=== PATIENT | male | born 1955 | race Asian ===

== ENCOUNTER 2018-10-26 08:36 | Day surgery (SDC) | payer MEDICARE ==
[~2018-10-26] VITALS: Ht 154.9 cm; Wt 74.8 kg
[~2018-10-26 08:36] MED LIST: BAYER CHEWABLE81 MG PO; CATAPRES0.1 MG PO; FLOMAX0.4 MG PO; LASIX40 MG PO; LOPRESSOR50 MG PO; MEDROL DOSE PACK4 MG PO; NORCO 10/325 TA1 TA1 PO; PRAVACHOL40 MG PO; PRILOSEC20 MG PO; TOPROL XL50 MG OR
[2018-10-26 09:55] LABS: BASOPHILS 0.9 % (0-2); EOSINOPHILS 9.4 % (0-7); HEMATOCRIT 39.5 % (42.0-54.0); HEMOGLOBIN 13.2 g/dL (13.5-17.5); IMMATURE GRANULOCYTES 0.4 % (0-5); LYMPHOCYTES 21.4 % (15-50); MCH 31.1 pg (26.0-34.0); MCHC 33.4 g/dL (31.0-37.0); MCV 92.9 fL (80.0-100.0); MEAN PLATELET VOLUME 9.2 fL (7.4-10.4); MONOCYTES 7.7 % (2-11); NEUTROPHILS 60.2 % (40-80); RBC 4.25 10x6/uL (4.20-6.10); RDW 13.6 % (11.5-14.5); WBC 9.1 10x3/uL (4.8-10.8)
[2018-10-26 10:01] LABS: PLATELET COUNT 161 10x3/uL (130-400)
[2018-10-26 10:05] LABS: ANION GAP 22.4 mmol/L (8-16); CALCIUM 8.4 mg/dL (8.5-10.1); CARBON DIOXIDE 22.8 mmol/L (21.0-32.0); CREATININE - SERUM 10.1 mg/dL (0.6-1.3); POTASSIUM - SERUM 5.2 mmol/L (3.5-5.1)
[2018-10-26] MEDS ORDERED: HYDRALAZINE HCL50 MG PO (10:12)
[2018-10-26] MEDS ORDERED: LOVASTATIN20 MG PO (10:13)
[2018-10-26] MEDS ORDERED: BRILINTA90 MG PO (10:13)
[2018-10-26] MEDS ORDERED: SENSIPAR30 MG PO (10:14)
[2018-10-26] MEDS ORDERED: ISOSORBIDE DINI20 MG PO (10:14)
[2018-10-26 10:22] VITALS: Ht 154.9 cm; Wt 74.8 kg
[2018-10-26 12:58] LABS: APTT 37.5 SECONDS (22.8-39.4); INR 1.07 (0.85-1.17); PROTIME 13.4 SECONDS (11.6-15.0)
--- NOTE | 2018-10-26 14:40 | NUR ---
REC'D FROM RR. FAMILY AT BEDSIDE, DRESSING CDI TO LEFT LOWER ARM AND LEFT HEMOSPLIT. XRANBERRY JUICE AND FL TRAY BROUGHT TO PATIENT. SURGEON WANTS BETTER DOCUMENTATION OF HEMOSPLIT PLACEMENT. CALLED RADIOLOGY FOR REPEAT OF XRAY.
[2018-10-26] MEDS ORDERED: HYDROCODON-ACE1 EAC7 PO (14:47)
--- NOTE | 2018-10-26 15:05 | NUR ---
CALLED NEPHROLOGY AND LEFT MESSAGE FOR TRICOT KNITTER TEST LAB TECHNICIAN TO CALL [facility] OUTPATIENT DEPARTMENT.
--- NOTE | 2018-10-26 15:10 | NUR ---
SPOKE WITH [facility]. RELAYED MESSAGE DR BROWN WROTE FOR DR HICKS. ANP ORDERED FOR TRAMADOL 50MG PO BE CALLED IN TO PHARMACY OF PATIENTS CHOICE.
--- NOTE | 2018-10-26 15:30 | NUR ---
RX CALLED INTO THE PHARMACY OF PATIENTS CHOICE.
--- NOTE | 2018-10-26 16:23 | NUR ---
CALLED SURGERY DEPARTMENT AND INFORMED DR BROWN OF THE X RAY RESULT. RELATED PATIENT IS CLEAR TO JOZEF LAGUNA
--- NOTE | 2018-10-26 16:40 | NUR ---
IV DC'D WITH CATHETER INTACT.
--- NOTE | 2018-10-26 16:43 | NUR ---
WRITTEN AND VERBAL DC INST. GIVEN TO PATIENT'S FAMILY. VERBALIZED UNDERSTANDING.
--- NOTE | 2018-10-26 16:45 | NUR ---
DC'D HOME WITH FAMILY VIA PRIVATE VEHICLE. TAKEN TO VEHICLE VIA PRIVATE VEHICLE. STABLE AT TIME OF DC.
--- NOTE | 2018-11-02 13:37 | OP ---
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 ADDITIONAL DIAGNOSES: End-stage renal disease on hemodialysis, dependence on hemodialysis and hypertension. 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 SURGEON: Abigail Brown MD ANESTHESIA: Regional nerve block plus IV sedation and monitoring per DIETARY CLERK. OPERATION PERFORMED: Revision of left forearm radiocephalic AV fistula by ligation of large aneurysmal segment and interposition of a new Artegraft prosthesis. Also, a fistulogram and ultrasound guidance and insertion of a 23 cm HemoSplit hemodialysis catheter via the left internal jugular vein done under local anesthesia with ultrasound and fluoroscopic guidance. PREOPERATIVE NOTE: Mr. Kaiser is a 62-year-old gentleman with end-stage renal disease, on chronic hemodialysis, in [place], [place]. He has dialyzed for quite a long time with a left wrist Maren AV fistula, but he has enlarging aneurysms of a segment of the vein, which are not in my opinion dangerous to him at this moment, but they have expanded over the last year and there is a definite problem in knowing where to stick his fistula for access and so he is brought to the operating room at this time to either repair or bypass in the forearm the present AV fistula or create a new fistula or graft more proximally. I would like to avoid a bridging catheter, but I think that a short-term use of a bridging catheter may be the best bet. DESCRIPTION OF PROCEDURE: A nerve block was administered per DIETARY CLERK. The patient was taken to the operating room and placed on the table in supine position. The neck and shoulder areas and the left arm were prepped and draped in sterile manner. I examined him with ultrasound and noted a very nice cephalic vein and median cubital vein, which provide the primary runoff for his fistula and certainly in the future creation of a brachial to cephalic vein fistula in that arm should be quite preferable; however, he appeared to have an adequate median antecubital vein just above the aneurysmal area that might since be a good landing zone for a graft. I cannulated his fistula distally near the radial artery anastomosis using micropuncture technique and performed a fistulogram which confirmed primary runoff was via the cephalic vein. The deep cubital vein and the secondary median cubital vein to the basilic seemed to also really runoff only to the cephalic vein and not to the basilic. There was a very good median antecubital vein for the graft to be anastomosed too. I made two incisions then, one distally over the fistula, at the radial artery anastomosis and dissected the cephalic vein from the surrounding tissues and controlled it with Silastic loops and vascular clamps as needed. Another OPERATIVE REPORT [id number] TJ KAISER incision on the forearm, just beneath the antecubital space, was made and the vein exposed there and several tributaries were controlled with Silastic loops. The vein was then clamped just proximal to the arterial anastomosis. It was ligated distally with 0 silk and the vein was then transected and anastomosed end-to-end to an artery graft, which was properly prepared having been very thoroughly rinsed after removing it from its package and then flushed with heparinized saline. The anastomosis was done end-to-end with running 6-0 Prolene and when completed and pressurized the suture line was hemostatic. The graft and radial artery were then flushed with saline and then heparin-lock solution. The graft was pulled through a lateral subcutaneous tunnel and brought back to the proximal incision where it was shortened and then again flushed with heparinized saline and clamped. The vein was ligated distally just proximal to the aneurysm. This also was done with 0 silk and the median cubital vein and distal runoff vessels were controlled with Silastic loops. The vein was transected and anastomosed end-to-end to the new graft. This also was done with running 6-0 Prolene. The outflow vein was flushed first with heparinized saline also. No other systemic anticoagulation was utilized. The suture line was hemostatic and excellent flow developed immediately within the new fistula. The patient did have a rather persistent ooze. This was in part due to his hypertension with blood pressures in the range of 150-160/100 throughout the procedure. I did not give DDAVP as I was first tempted because of the patient's severe coronary artery disease. His stock roller has only given his blessing to the operation if his time of Brilinta can be minimized to 2 days. I thought that the use of DDAVP might actually participate in coronary thrombosis and so we did not use it. The wounds were irrigated with saline. Excellent continuous pulsatile Doppler flow was demonstrated. The wounds were closed with interrupted inverted 3-0 Vicryl and then running intracuticular 4-0 Monocryl and Dermabond glue. They were dressed with Maxorb AG and Tegaderm with Cavilon skin prep. Some fluffed gauze was used to fill the aneurysmal cavities and the arm was then dressed with additional 4 x 4s over the aneurysms and over the incisions and then wrapped in Kerlix and then carefully wrapped by myself with 2-inch Coban dressing applying snug pressure in hopes of retarding complete refilling of the aneurysm. There was good flow in the fistula demonstrated after the bandage was applied. The patient was then slightly repositioned and the right neck examined with ultrasound and the right internal jugular vein noted to be thrombosed. The left internal jugular vein on ultrasound was quite large of normal caliber and compressibility and normal color flow, no clots, etc. Local anesthetic was injected into the skin and subcutaneous tissues. Small transverse incision was made there at the base of the neck on the left, and using ultrasound guidance and micropuncture technique the internal jugular vein was cannulated. A wire exchange was performed and then large dilators passed serially over the wire and lastly a dilator peel-away sheath was inserted. This was all done under fluoroscopy. I made an incision beneath the clavicle and created a subcutaneous tunnel through which the catheter was pulled from the infraclavicular incision up to the cervical incision and inserted through the peel-away sheath under fluoroscopy. It was difficult to get the catheter to pass downward into the superior vena cava and right atrium, but with some manipulation, this was accomplished and a good catheter position resulted. The catheter was accessed and aspirated, free return of blood was confirmed for both limbs. It was then heparin-locked, clamped and capped. It was sutured to the skin near the entry site with 2-0 Prolene and a Biopatch applied and sterile CVL dressing after the OPERATIVE REPORT [id number] TJ KAISER skin was treated with topical Cavilon. The cervical incision was closed with interrupted inverted 3-0 Vicryl and Dermabond glue and dressed with Maxorb Ag, Tegaderm and Cavilon skin prep. The patient was then awakened and stable, returned to the outpatient department in good condition. PLAN: I think the patient can go home today. I would like him to wear his sling today and this evening, but no longer. He is to wear it really only as long as the block was in effect. Once it has worn off, I want him to use his arm and maintain a normal range of motion. I would like him to keep his left arm elevated a little bit higher than his heart on pillows when he is lying down for the next day or so hopefully to prevent complete refilling of the aneurysm. I would like to minimize the amount of clot there, so maybe we will not have to go back and excise it. He is to continue all the same medicines. I have asked that he not resume his Brilinta until Monday. I have an appointment arranged for him see me in my office Monday, that is the Monday the week after this coming Monday, it would be the . He is to continue all of his other same medications and diet, continue his same dialysis schedule. We will plan to access graft in 2 weeks. I also think that he should have an early followup angiogram probably at 4 weeks to make certain that there are no kinks or stenoses at the two anastomotic sites or in the tunnel. TRANSINT:[id number] Voice Confirmation ID: [id number] DOCUMENT ID: [id number] cc: Aniceto Alarcon ABIGAIL BROWN MD at 1337 CC: ANICETO ALARCON and MATI HICKS [id number] DICTATION DATE: 10/26/18 1520 SEED SPECIALIST: 10/26/18 1623 [facility] 10/26/18 [facility] [address] [place] [place] [id number]
== END 2018-10-26 16:45 | disposition home or self-care (01) ==
LOC: D.OPS 08:36
PROVIDERS: Surgery
DX: T82.898A Other specified complication of vascular prosthetic devices, implants and grafts, initial encounter (principal); I82.C11 Acute embolism and thrombosis of right internal jugular vein; I12.0 Hypertensive chronic kidney disease with stage 5 chronic kidney disease or end stage renal disease; N18.6 End stage renal disease; Z99.2 Dependence on renal dialysis

== ENCOUNTER 2020-05-30 22:50 | Inpatient (IN) | payer MEDICARE ==
[~2020-05-30] VITALS: Ht 154.9 cm; Wt 76.2 kg
--- NOTE | ~2020-05-30 | EC ---
PATIENT:TJ HERNANDEZ DATE OF SERVICE: 05/31/20 SEX: M MEDICAL RECORD: [id number] DATE OF : 55 LOCATION:D.M2 D.211 AGE OF PATIENT: 64 ADMISSION DATE: 05/31/20 REFERRING PHYSICIAN: INTERPRETING PHYSICIAN: OBAZ MEJIA MD ECHOCARDIOGRAM REPORT ECHO CHARGES 4 ECHO COMPLETE Date: 05/31/20 CLINICAL DIAGNOSIS: CARDIOMYOPATHY ECHOCARDIOGRAPHIC MEASUREMENTS (adult normal given) AC root (d.<3.7cm) 3.5 cm LV Septum d (<1.2 cm> 1.3 cm Valve Excursion 1.5 cm LV Septum (systole) 1.5 cm Left Atria (s.<4.0cm> 4.1 cm LVPW d(<1.2cm) 1.4 cm RV (d.<2.3cm) 4.8 cm LVPW (sytole) 1.7 cm LV diastole(<5.6CM) 6.9 cm MV E-F(>70mm/sec) cm LV systole 5.2 cm LVOT Diameter 1.9 cm MV exc.(>10mm) 2.2 cm Est.ejection fraction (50-75%) % DOPPLER: LVIT cm/sec A 27.0 cm/sec E 87.0 cm/sec LA cm/sec RVSP 48 mmHg LVOT 94 cm/sec AOP1/2T m/s Asc. Ao 150 cm/sec RVOT 81 cm/sec RA cm/sec PA 127 cm/sec AV Gradient Peak 9.00 mmHg AV Mean 4.72 mmHg AV Area 1.6 cm MV Gradient Peak 6.90 mmHg MV Mean 2.71 mmHg MV Area cm COMMENTS: Mask Design Engineer: 2 LUIS FELIPE FELDER Director Of Dementia Operations: 3 Dr. Roche TAPE# PACS Pericardial Effusion N DATE OF SERVICE: 06/01/2020 Adequate 2D, color flow imaging, spectral Doppler, and M-Mode. LVH is present. LV internal dimensions are dilated. LV systolic globally hypokinetic, reduced EF, estimated EF 30% to 35%. Aortic valve is tricuspid. No evidence of stenosis by Doppler interrogation. There is mild AI. Left atrium is dilated is at 4.4 cm. Mitral valve shows no prolapse. Moderate MR. Right-sided chambers are grossly normal. Moderate TR. ECHOCARDIOGRAM REPORT [id number] TJ HERNANDEZ TRANSINT:[id number] Voice Confirmation ID: [id number] DOCUMENT ID: [id number] BOAZ MEJIA MD CC: [id number] DICTATION DATE: 06/01/20 100 CLINICAL ADMINISTRATOR: 06/01/20 1133 ADM IN [place] [id number] [place] [address]
--- NOTE | ~2020-05-30 | CN ---
PATIENT NAME:TJ HERNANDEZ MEDICAL RECORD: [id number] : 55 LOCATION:[facility] D.2113 ADMIT DATE: 05/31/20 ACCOUNT: [id number] CONSULTING PHYSICIAN: BOAZ MEJIA MD REFERRING PHYSICIAN: BOAZ CUELLAR MD DATE OF CONSULTATION: 05/31/2020 HISTORY OF PRESENT ILLNESS: A 64-year-old gentleman with chronic renal insufficiency, on dialysis, has a history of a cardiomyopathy, was transferred after being found to be in atrial fibrillation with RVR as well as hypotensive and angina. Subsequently, found to have an elevated troponin consistent with NSTEMI. We are asked to see him concerning his cardiovascular status. PAST MEDICAL HISTORY: Includes: 1. History of chronic renal insufficiency. 2. Hypertension. 3. Hyperlipidemia. 4. Coronary artery disease. 5. Gastroesophageal reflux disease. ALLERGIES: None known. MEDICATIONS: Include albuterol 2 puffs b.i.d., Flomax 0.4 every day, Brilinta 90 b.i.d., hydralazine 50 b.i.d., Imdur 20 t.i.d., lovastatin 20 bedtime, clonidine 0.1 q.4 p.r.n., aspirin 81 every day, Lasix 40 every day. SOCIAL HISTORY: He lives in [place], nonsmoker, nondrinker. Easily takes care of his ADLs. REVIEW OF SYSTEMS: The patient reports easy bruising but reports no swollen glands. The patient reports no fever, no night sweats, no significant weight gain, no significant weight loss. No significant exercise tolerance. The patient reports no dry eyes, no irritation, no vision change. Patient reports no difficulty hearing and no ear pain. Patient reports no frequent nose bleeds or nose and sinus problems. Patient reports on arm pain on exertion. No shortness of breath while lying down. No history of heart murmur. Patient reports no cough, no wheezing or coughing up blood. Patient reports no abdominal pain, no vomiting. Normal appetite. No diarrhea and not vomiting blood. No nausea and no constipation. Patient reports no incontinence. No difficulty urinating. No hematuria. No increased frequency. Patient reports no muscle aches. No weakness, no arthralgias, no back pain. No swelling of the extremities. Patient reports no abnormal mole, no jaundice, no rashes. Reports no loss of consciousness. No weakness and no numbness. No seizures, dizziness, or headaches. The patient reports no depression, no sleep disturbance, feeling safe in a relationship and no alcohol abuse. Patient reports on fatigue. Reports no runny nose or sinus pressure. No itching, no hives, and no frequent sneezing. PHYSICAL EXAMINATION: GENERAL: Pleasant, in no acute distress, appears stated age. VITAL SIGNS: Blood pressure 112/82, pulse 88 and regular. HEENT: Normocephalic, atraumatic. NECK: No bruits noted. HEART: Irregular, rate is controlled, II/ systolic ejection murmur. LUNGS: Fair air excursion. CONSULT REPORT [id number] TJ HERNANDEZ ABDOMEN: Soft, nontender. EXTREMITIES: Pulses 2+. No edema. DIAGNOSTIC DATA: EKG shows nonspecific ST-T changes, atrial fibrillation. IMPRESSION: Non-ST elevation myocardial infarction, question of demand ischemia from hypotension and atrial fibrillation versus fixed obstructive disease. PLAN: For angiography, intervention based on above. TRANSINT:[id number] Voice Confirmation ID: [id number] DOCUMENT ID: [id number] BOAZ MEJIA MD CC: [id number] DICTATION DATE: 05/31/20 1029 PLANT ECOLOGIST: 05/31/20 1514 ADM IN [facility] [address] [place] [address]
--- NOTE | ~2020-05-30 | HEMODYNAMI ---
PATIENT:TJ HERNANDEZ MEDICAL RECORD: [id number] : 55 LOCATION:[facility] D.2113 ADMISSION DATE: 05/31/20 Generatedon:06/01/202010:33 Patient name: TJ HERNANDEZ Patient #: [id number] : 1955 Date of study: 06/01/2020 Page: Of Hemodynamic Procedure Report Patient Data Patient Demographics Procedure consent was obtained First Name: TJ Gender: Male Last Name: DAVID : 1955 Patient #: [id number] Age: 64 year(s) Race: SSN: [id number] Additional ID: [id number] Contact details Address: [address] [place] [address] [place] [place] [facility] Zip code: [address] Past Medical History Allergies: No known allergies Admission Admission Data Admission Date: 05/31/2020 Admission Time: 0:46 Arrival Date: 06/01/2020 Arrival Time: 0:00 Admit Source: Other Insurance Payor: Medicaid Room #: D.2113 [facility] #: [id number] Height (in.): 60.63 BSA: 1.74 (m2) Height (cm.): 154 BMI: 32.05 (kg/m2) Weight (lbs.): 167.55 Weight (kg.): 76 Lab Results Lab Result Date: 06/01/2020 Lab Result Time: 0:00 Biochemistry Name Units Result Min Max BUN mg/dl 71 --(----)-* 7 18 Creatinine mg/dl 10.1 --(----)-* 0.6 1.3 eGFR ml/min 6 *-(----)-- 90 120 NONAFRICAN CBC Name Units Result Min Max Hemoglobin g/dl 9.8 *-(----)-- 13.5 17.5 Procedure Procedure Types Cath Procedure Diagnostic Procedure LHC [facility] w/Coronaries Sedation Charges Moderate Sedation up to 15 minutes Procedure Description Procedure Date Procedure Date: 06/01/2020 Procedure Start Time: 10:17 Procedure End Time: 10:31 Procedure Staff Name Function Eric Ragland MD Performing Physician Julita Valentino RT Monitor Ingris Real RN Nurse Ana Levin RT Scrub Procedure Data Cath Procedure Fluoroscopy Diagnostic fluoroscopy Total fluoroscopy Time: 1.9 time: 1.9 min min Diagnostic fluoroscopy Total fluoroscopy dose: 445 dose: 445 mGy mGy Contrast Material Contrast Material Type Amount (ml) Isovue 300 59 Entry Location Entry Primary Successful Side Size Upsize Upsize Entry Closure Succes sful Closure Location (Fr) 1 (Fr) 2 (Fr) Remarks Device Remarks Femoral Right 5 Fr Exoseal artery Estimated blood loss: 10 ml Diagnostic catheters Device Type Used For End Catheter Placement MULTIPACK JL 4.0 5Fr Procedure catheter MULTIPACK 3DRC 5Fr Procedure catheter MULTIPACK Pigtail 5 Fr Ventriculography catheter Procedure Complications No complications Procedure Medications Medication Administration Route Dosage Oxygen etCO2 Nasal cannula 2 l/min Lidocaine 2% added to field 20 Heparin Flush Bag added to field 2 bags (1000units/500ml NS) 0.9% NaCl I.V. Versed I.V. 1 mg Fentanyl I.V. 50 mcg Hemodynamics Rest BSA: 1.74 (m2) HGB: 9.8 (g/dl) O2 Consumption: Estimated: 224.31 (ml/min) O2 Con sumption indexed: Estimated:128.91 (ml/min/m) Heart Rate: 102 (bpm) Pressure Samples Time Site Value (mmHg) Purpose Heart Use Rate(bpm) 10:25 LV 107/30,18 Snapshot 108 Gradients Valve Time Site Site Mean SEP/DFP Peak To Heart Use 1 2 (mmHg) (sec/min) Peak Rate (mmHg) (bpm) Aortic 10:25 LV AO 104 Snapshots Pre Cath Intra NCS Post Cath Vital Signs Time Heart Resp SPO2 etCO2 NIBP (mmHg) Rhythm Pain Sedation Rate (ipm) (%) (mmHg) Status Level (bpm) 10:06:09 105 20 100 0 132/100(129) A-Fib 0 (11) 10(A) , No pain 10:10:29 108 21 100 0 132/94(109) A-Fib 0 (11) 10(A) , No pain 10:14:49 102 18 100 0 131/102(121) A-Fib 0 (11) 10(A) , No pain 10:19:09 96 17 100 0 137/93(121) A-Fib 0 (11) 10(A) , No pain 10:23:25 101 16 98 0 125/103(112) A-Fib 0 (11) 10(A) , No pain 10:27:43 95 14 96 0 129/91(94) A-Fib 0 (11) 10(A) , No pain Medications Time Medication Route Dose Verified Delivered Reason Notes Eff ectiveness by by 10:05:02 Oxygen etCO2 2 Eric Buffie used for Nasal l/min [facility] Montez Real RN procedure cannula 10:05:09 Lidocaine 2% added 20ml Eric Eric for local to vial [facility] anesthetic field MD MORENO 10:05:16 Heparin Flush added 2 Eric Eric used for Bag to bags [facility] procedure (1000units/500ml field MD MORENO NS) 10:05:26 0.9% NaCl I.V. kvo Eric Amado Per ml/hr Ellyn Adide RN physician 10:15:22 Versed I.V. 1 [address] [facility] Montez Real RN sedation 10:15:28 Fentanyl I.V. 50 Eric Faithie for mcg Ellyn Addie RN sedation Procedure Log Time Note 9:36:29 Informed consent obtained and on chart 9:51:15 Arrival Date: 06/01/2020 12:00:00 AM 9:51:38 Admit Source: Other 9:51:44 Insurance Payor : Medicaid 9:51:52 Patient Height : 60.63 inches 9:51:55 Patient Weight : 167.55 lbs 9:53:16 Lab Result : eGFR NONAFRICAN 6 ml/min 9:53:16 Lab Result : Hemoglobin 9.8 g/dl 9:53:16 Lab Result : BUN 71 mg/dl 9:53:16 Lab Result : Creatinine 10.1 mg/dl 9:53:46 Procedure Status Urgent Heart Cath (IP). 9:53:49 Ana DELAROSA(R) (CV) sent for patient. Start room use. 9:53:51 Time tracking: Regular hours (M-F 7:00 - 5:00) 9:53:58 Plan of Care:Hemodynamics will remain stable., Cardiac rhythm will remain stable., Comfort level will be maintained., Respiratory function will remain adequate., Patient/ family verbilizes understanding of procedure., Procedure tolerated without complication., Recovers from procedure without complications.. 9:54:10 Patient received from Med II to CCL 1 Alert and oriented. Tansferred to table in Supine position. 9:54:11 Correct patient and procedure confirmed by team. 9:54:14 ECG and BP/O2 sat monitors applied to patient. 9:54:25 H&P Date Dictated: 05/31/2020 Within 30 days and on chart., H&P Addendum completed by physician on day of procedure. (MUST COMPLETE FOR ALL OUTPATIENTS). 9:54:28 Pre-procedure instructions explained to patient. 9:54:37 Family unavailable. 9:55:30 Patient allergic to No known allergies 9:55:53 Is the patient allergic to Iodine/contrast media? No. 9:55:55 Was the patient premedicated? Yes 9:56:16 Patient diabetic? Yes. 9:56:19 If diabetic: On Metformin? No 9:56:23 Snore? Yes 9:56:25 Sleep apnea? Yes 9:56:34 Airway obstruction? Yes UNK 9:56:50 Dentures? No ? 9:57:09 Patient pain scale 0/10 ?. 9:57:23 IV patent on arrival in right hand with 0.9% NaCl at KVO. 9:57:26 Lab results completed and on chart. 9:57:30 Right groin area was prepped with chlora-prep and draped in sterile fashion 9:57:31 Alarms reviewed by R. N. 9:57:32 Sharps counted by scrub and verified by R.N. 10:04:51 Vital chart was started 10:05:02 Oxygen 2 l/min etCO2 Nasal cannula was administered by Ingris Real RN; used for procedure; Verbal order read back and verified. 10:05:09 Lidocaine 2% 20ml vial added to field was administered by Eric Ragland MD; for local anesthetic; Verbal order read back and verified. 10:05:16 Heparin Flush Bag (1000units/500ml NS) 2 bags added to field was administered by Eric Ragland MD; used for procedure; Verbal order read back and verified. 10:05:26 0.9% NaCl kvo ml/hr I.V. was administered by Ingris Real RN; Per physician; Verbal order read back and verified. 10:05:27 Physician arrived 10:05:27 --------ALL STOP TIME OUT------ 10:05:29 Final Timeout: patient, procedure, and site verified with staff and physician. All members of the team are in agreement. 10:05:40 Right groin site verified by team. 10:05:45 Fire Safety Assessment: A--An alcohol-based skin anteseptic being used preoperatively., C--Open oxygen or nitrous oxide is being used., D--An ESU, laser, or fiber-optic light is being used. 10:05:50 Physical assessment completed. ASA score P 3 - A patient with severe systemic disease as per Eric Ragland MD. 10:05:54 5) <15 or on dialysis Very severe, or end stage kidney failure. 10:06:01 Maximum allowable contrast dose (3.7 X eGFR X 0.75)16 ml. 10:06:06 Sedation plan: IV Moderate Sedation Medication:Versed, Fentanyl 10:06:19 Baseline sample Acquired. 10:06:24 Full Disclosure recording started 10:08:37 Is patient on blood thinner?Yes 10:08:42 ACC The patient was administered the following blood thiners within the last 24 hours: ACCBrilinta 10:13:10 Use device set Femoral Dx 10:13:11 ACIST Syringe (23541) opened to sterile field. 10:13:11 Bag Decanter (2001S) opened to sterile field. 10:13:12 Medline Cath Pack ([id number]) opened to sterile field. 10:13:14 ACIST Hand Control (11851) opened to sterile field. 10:13:14 ACIST Manifold (96917) opened to sterile field. 10:13:15 DIAGNOSTIC Multipack 5Fr catheter set (MA3143) opened to sterile field. 10:13:16 Tegaderm 4 x 4 (1626W) opened to sterile field. 10:13:18 SHEATH 5FR [place] (ETT761) opened to sterile field. 10:13:19 EMERALD Guide Wire (669-084) opened to sterile field. 10:15:22 Versed 1 mg I.V. was administered by Ingris Real RN; for sedation; Verbal order read back and verified. 10:15:28 Fentanyl 50 mcg I.V. was administered by Ingris Real RN; for sedation; Verbal order read back and verified. 10:16:52 Procedure started. 10:17:07 Local anesthetic to right femoral artery with Lidocaine 2% by Eric Ragland MD.INITIAL ACCESS ONLY 10:17:45 A 5 Fr sheath was inserted into the Right Femoral artery 10::49 A MULTIPACK JL 4.0 5Fr catheter was advanced over the wire and used for Procedure. 10::51 LCA angiography performed. 10::53 Catheter removed. 10:22:01 A MULTIPACK 3DRC 5Fr catheter was advanced over the wire and used for Procedure. 10:22:06 RCA angiography performed. 10:23:15 Catheter removed. 10:23:21 A MULTIPACK Pigtail 5 Fr catheter was advanced over the wire and used for Ventriculography. 10:23:26 LV angiography performed. 10:23:32 Zero performed for pressure channel P1 10:25:22 EF : 20 % 10:25:25 Catheter removed. 10:25:28 EXOSEAL 5Fr (EX500) opened to sterile field. 10:25:57 Sheath removed intact; hemostasis achieved with Exoseal to the Right Femoral artery. 10:26:02 Procedure ended.(Physican Out) 10:27:18 Fluoroscopy time 01.90 minutes. 10::22 Fluoroscopy dose: 445 mGy 10::22 Flurop Dose total: 445 10:27:26 Dose Area Product 16766 mGy/cm. 10:27:34 Contrast amount:Isovue 300 59ml. 10:27:58 Maximum allowable dose exceeded? Yes. 10::59 Sharps counted by scrub and verified by R.N. 10:28:00 Insertion/operative site no bleeding no hematoma. 10:28:06 Post-op/insertion site Right Femoral artery dressed using a 4 x 4 and Tegaderm. 10:28:10 Post right femoral artery:stable 10:28:14 Post Procedure Pulses reassessed and unchanged 10:28:20 Post-procedure physical assessment completed. ASA score P 3 - A patient with severe systemic disease as per Eric Ragland MD. 10:28:29 Post procedure rhythm: unchanged. 10:28:32 Estimated blood loss: 10 ml 10:28:34 Post procedure instruction explained to patient.Patient verbalizes understanding. 10:29:35 Procedure type changed to Cath procedure, Diagnostic procedure, LHC, LHC w/Coronaries, Sedation Charges, Moderate Sedation up to 15 minutes 10:29:37 Procedure and supply charges have been captured, reviewed, submitted and are correct. 10:30:04 Procedure and supply charges have been captured, reviewed, submitted and are correct. 10:30:16 Procedure Complication : No complications 10:30:19 Vital chart was stopped 10:30:34 [facility] Findings: mild to moderate CAD (<70%) 10:30:42 Report given to Med II. 10:30:47 Patient transfered to Med II with Bed. 10:31:07 Procedure ended. 10:31:07 Full Disclosure recording stopped 10:31:10 End room use (Document Last) Device Usage Item Name Manufacture Quantity Catalog Hospital Part Current Minimal L ot# / Number Charge Number Stock Stock Serial# Code ACIST Acist 1 88160 397004 119219 532776 20 Syringe Medical (07515) Systems Inc Bag Microtek 1 2001S 125855 73193 000496 5 Decanter Medical Inc. () Medline Medline 1 [id number] 046236 27852 358334 5 Cath Pack ([id number]) ACIST Hand Acist 1 09583 245983 529467 635935 5 Control Medical (71389) Systems Inc ACIST Acist 1 21852 101036 275632 212910 5 Manifold Medical (29095) Systems Inc DIAGNOSTIC Cardinal 1 [id number] 119720 08610 796799 30 Multipack Health 5Fr catheter set (UZ5477) Tegaderm 4 3M 1 1626W 113901 580198 770349 5 x 4 (1626W) SHEATH 5FR Terumo 1 SLO776 197985 955946 019794 5 [place] (YYG650) EMERALD Cardinal 1 502-455 060006 002093 156699 5 Guide Wire [facility] (502-455) MULTIPACK Cardinal 1 776228 5 JL 4.0 5Fr Health catheter MULTIPACK Cardinal 1 820509 5 3DRC 5Fr Health catheter MULTIPACK Cardinal 1 885633 5 Pigtail 5 Health Fr catheter EXOSEAL 5Fr Cardinal 1 EX500 363574 425560 621544 10 (EX500) Health Signature Audit [place] Stage Time Signature Unsigned Intra-Procedure 06/01/2020 Julita Valentino 10:30:04 AM RT(R) Intra-Procedure 06/01/2020 Ingris Real RN 10:33:06 AM Intra-Procedure 06/01/2020 Eric Jordan 10:33:39 AM Montez MORENO [facility] [address] [id number]
--- NOTE | ~2020-05-30 | OP ---
PATIENT NAME: TJ HERNANDEZ MEDICAL RECORD: [id number] :55 LOCATION:D.M2 D.2112 ADMISSION DATE:05/31/20 SURGEON: BOAZ MEJIA MD DATE OF OPERATION: 06/01/2020 PROCEDURE: Left heart catheterization, selective angiography, right femoral artery approach. CATHETERS: A 5-Macedonian sheath, 5/4 left and right Vinnie, 5/4 pig. Procedure was well tolerated. The patient was returned to the leo. Sheath removed. ExoSeal device placed. FINDINGS: Left ventriculography in 30-degree MEDINA view: Global hypokinesis with reduced EF, estimated at 20% to 25%. CORONARY ANATOMY: LEFT MAIN: Left main is free of disease. LAD: Area of previous stent is widely patent without evidence of restenosis. No progression of circle disease. CIRCUMFLEX: Left dominant system, free of disease. RIGHT CORONARY ARTERY: Rudimentary vessel totally occluded in its mid portion with filling via both right to right and left to right collaterals. IMPRESSION: Patent stents, cardiomyopathy appears in excess to his underlying coronary disease. Medical management recommended. TRANSINT:[id number] Voice Confirmation ID: [id number] DOCUMENT ID: [id number] BOAZ MEJIA MD CC: [id number] DICTATION DATE: 06/01/20 1035 CHILD CARE NURSE: 06/01/202055 ADM IN [facility] [address] [place] [address]
[~2020-05-30 22:50] MED LIST changes: +BRILINTA90 MG PO; +HYDRALAZINE HCL50 MG PO; +HYDROCODON-ACE1 EAC7 PO; +ISOSORBIDE DINI20 MG PO; +LOVASTATIN20 MG PO; +SENSIPAR30 MG PO
[2020-05-30 23:20] LABS: BASOPHILS 1.5 % (0-2); EOSINOPHILS 6.5 % (0-7); HEMATOCRIT 33.6 % (42.0-54.0); HEMOGLOBIN 10.3 g/dL (13.5-17.5); IMMATURE GRANULOCYTES 0.2 % (0-5); LYMPHOCYTES 20.7 % (15-50); MCH 30.7 pg (26.0-34.0); MCHC 30.7 g/dL (31.0-37.0); MEAN PLATELET VOLUME 9.6 fL (7.4-10.4); MONOCYTES 10.7 % (2-11); NEUTROPHILS 60.4 % (40-80); PLATELET COUNT 125 10x3/uL (130-400); RBC 3.36 10x6/uL (4.20-6.10); RDW 16.3 % (11.5-14.5); WBC 5.4 10x3/uL (4.8-10.8)
[2020-05-30 23:25] LABS: CALC OSMOLALITY 275 mosm/kg (275-300); CALCIUM 8.9 mg/dL (8.5-10.1); CARBON DIOXIDE 25.4 mmol/L (21.0-32.0); CHLORIDE - SERUM 97 mmol/L (98-107); GLUCOSE 76 mg/dL (74-106); POTASSIUM - SERUM 4.4 mmol/L (3.5-5.1); SODIUM 134 mmol/L (136-145); UREA NITROGEN 38 mg/dL (7-18); eGFR NON AFRICAN AMERICAN 8 mL/min (90-120)
[2020-05-30] MEDS ORDERED: BAYER CHEWABLE81 MG PO (23:27)
[2020-05-30] MEDS ORDERED: RENAGEL800 MG PO (23:28)
[2020-05-30] MEDS ORDERED: LOVASTATIN20 MG PO (23:29)
[2020-05-30] MEDS ORDERED: VENTOLIN HFA [SP8 GM INH (23:30)
[2020-05-30 23:45] LABS: ALBUMIN 3.8 g/dL (3.4-5.0); ALKALINE PHOSPHATASE 113 U/L (30-120); ALT (SGPT) 15 U/L (10-68); BILIRUBIN - TOTAL 2.48 mg/dL (0.2-1.3); CKMB 3.1 U/L (0.0-3.6); CREATINE KINASE 159 UL (21-232); MAGNESIUM - SERUM 1.8 mg/dL (1.8-2.4); PHOSPHOROUS 5.4 mg/dL (2.5-4.9); PROTEIN - SERUM 7.6 g/dL (6.4-8.2)
[2020-05-30 23:47] LABS: PRO BNP 37397 pg/mL (0-125)
[2020-05-30 23:48] LABS: TROPONIN-I 0.145 ng/mL (0.000-0.060)
[2020-05-30 23:49] LABS: INR 1.76 (0.85-1.17); PROTIME 20.3 SECONDS (11.6-15.0)
[2020-05-30 23:50] LABS: APTT 43.4 SECONDS (22.8-39.4)
[2020-05-31] VITALS (9 sets, daily range): BP systolic 102–147; BP diastolic 70–87; BMI 31.8
--- NOTE | 2020-05-31 02:56 | NUR ---
RECIEVED REPORT HILL PEREZ RN IN ER. ARRIVED TO FLOOR ON STRETCHER. TRANSFERED SELF TO BED. ALERT AND ORIENTED X4. SPEAKS BROKEN UPPER SORBIAN AND HARD TO UNDERSTAND. PREFERS TO SPEAK GAL. LT ARM RESERVED D/T AVF. GOOD MIGUEL AND NORMA. IV TO RT FA SL. DENIES ANY NEEDS AT THIS TIME.
[2020-05-31 07:42] LABS: HEMATOCRIT 33.7 % (42.0-54.0); HEMOGLOBIN 10.6 g/dL (13.5-17.5); MCH 30.9 pg (26.0-34.0); MCHC 31.5 g/dL (31.0-37.0); MCV 98.3 fL (80.0-100.0); MEAN PLATELET VOLUME 9.6 fL (7.4-10.4); PLATELET COUNT 117 10x3/uL (130-400); RBC 3.43 10x6/uL (4.20-6.10)
[2020-05-31 07:45] LABS: WBC 6.9 10x3/uL (4.8-10.8)
[2020-05-31 07:46] LABS: ALBUMIN 3.8 g/dL (3.4-5.0); ALKALINE PHOSPHATASE 113 U/L (30-120); ALT (SGPT) 16 U/L (10-68); BILIRUBIN - TOTAL 2.44 mg/dL (0.2-1.3); CALC OSMOLALITY 283 mosm/kg (275-300); CALCIUM 9.2 mg/dL (8.5-10.1); CARBON DIOXIDE 25.3 mmol/L (21.0-32.0); CHLORIDE - SERUM 98 mmol/L (98-107); CKMB 3.2 U/L (0.0-3.6); CREATINE KINASE 157 UL (21-232); CREATININE - SERUM 8.1 mg/dL (0.6-1.3); GLUCOSE 73 mg/dL (74-106); MAGNESIUM - SERUM 1.9 mg/dL (1.8-2.4); PHOSPHOROUS 6.2 mg/dL (2.5-4.9); POTASSIUM - SERUM 4.4 mmol/L (3.5-5.1); PROTEIN - SERUM 7.7 g/dL (6.4-8.2); SODIUM 136 mmol/L (136-145); TROPONIN-I 0.124 ng/mL (0.000-0.060); UREA NITROGEN 48 mg/dL (7-18); eGFR NON AFRICAN AMERICAN 7 mL/min (90-120)
[2020-05-31 08:34] LABS: EOSINOPHILS 8 % (0-7); LYMPHOCYTES 15 % (15-50); NEUTROPHILS 77 % (40-80); PLATELET ESTIMATE NORMAL
[2020-05-31 09:19] LABS: CHOL - HDL RATIO 2.6 ratio (2.3-4.9); LDL-HDL RATIO 1.3 ratio (1.5-3.5)
--- NOTE | 2020-05-31 11:40 | NUR ---
CONSETS SIGNED FOR C IN AM.
--- NOTE | 2020-05-31 20:00 | NUR ---
INITIAL ROUNDS AND ASSESSMENT COMPLETED. PT RESTING IN BED WITH NO DISTRESS. CAF PER TELEMETRY. O2 @ 2L/NC WITH NONLABORED RESPIRATIONS. RESERVE LEFT ARM FOR AVF. SALINE LOCK TO RFA. INSTRUCT ON NPO AFTER MIDNIGHT FOR HEART CATH IN AM. PT VOICED UNDERSTANDING.
[2020-06-01] VITALS (7 sets, daily range): BP systolic 0–132; BP diastolic 0–85; Ht 154.9 cm; Wt 76.2 kg
[2020-06-01 04:41] LABS: BASOPHILS 1.1 % (0-2); HEMATOCRIT 30.8 % (42.0-54.0); HEMOGLOBIN 9.8 g/dL (13.5-17.5); IMMATURE GRANULOCYTES 0.4 % (0-5); LYMPHOCYTES 19.4 % (15-50); MCH 30.9 pg (26.0-34.0); MCHC 31.8 g/dL (31.0-37.0); MCV 97.2 fL (80.0-100.0); MEAN PLATELET VOLUME 8.8 fL (7.4-10.4); MONOCYTES 12.4 % (2-11); NEUTROPHILS 55.7 % (40-80); PLATELET COUNT 121 10x3/uL (130-400); RBC 3.17 10x6/uL (4.20-6.10); RDW 15.5 % (11.5-14.5); WBC 5.3 10x3/uL (4.8-10.8)
[2020-06-01 05:18] LABS: ALBUMIN 3.4 g/dL (3.4-5.0); ANION GAP 15.4 mmol/L (8-16); BILIRUBIN - TOTAL 1.27 mg/dL (0.2-1.3); CREATININE - SERUM 10.1 mg/dL (0.6-1.3); POTASSIUM - SERUM 4.4 mmol/L (3.5-5.1); PROTEIN - SERUM 6.9 g/dL (6.4-8.2)
[2020-06-01 05:27] LABS: PHOSPHOROUS 7.8 mg/dL (2.5-4.9)
[2020-06-01 09:27] LABS: CHOL - HDL RATIO 2.4 ratio (2.3-4.9); LDL-HDL RATIO 1.2 ratio (1.5-3.5)
[2020-06-01] MEDS ORDERED: COZAAR25 MG PO (14:07)
[2020-06-01] MEDS ORDERED: METOPROLOL TART25 MG PO (14:10)
--- NOTE | 2020-06-01 16:43 | NUR ---
DAUGHTER INROUTE TO CONCRETE VIBRATOR OPERATOR FATHER BUT DID NOT HAVE OXYGEN, OXYGEN [employer]ENT[employer] COMPANY CALLED AND HAD NO INSTALLMENT AGENT AVAILABLE TO BRING PORTABLE TANK. DISCHARGE CANCELLED AND SON WILL CONCRETE VIBRATOR OPERATOR FATHER WITH PORTABLE OXYGEN TOMORROW.
--- NOTE | 2020-06-01 20:26 | NUR ---
REPORT RECEIVED, WILL CONT POC. PT A&O, UP IN BED WATCHING TV. NO S/S OF DISTRESSED OBSERVED. RR EVEN AND UNLABORED ON 2L VIA NC. REQUESTS WATER, BROUGHT TO BEDSIDE. PT DENIES FURTHER NEEDS AT THIS TIME. BED LOCKED AND LOWERED, CALL LIGHT IN REACH. ASSESSMENT COMPLETED AT THIS TIME. WILL CONT TO MONITOR.
[2020-06-02 00:17] VITALS: BP 112/64
[2020-06-02 04:00] VITALS: BP 120/55
[2020-06-02 05:41] LABS: BASOPHILS 0.9 % (0-2); EOSINOPHILS 10.6 % (0-7); HEMATOCRIT 30.7 % (42.0-54.0); HEMOGLOBIN 9.6 g/dL (13.5-17.5); IMMATURE GRANULOCYTES 0.4 % (0-5); MCH 30.4 pg (26.0-34.0); MCHC 31.3 g/dL (31.0-37.0); MCV 97.2 fL (80.0-100.0); MEAN PLATELET VOLUME 9.6 fL (7.4-10.4); MONOCYTES 10.4 % (2-11); NEUTROPHILS 59.7 % (40-80); PLATELET COUNT 134 10x3/uL (130-400); RBC 3.16 10x6/uL (4.20-6.10); RDW 15.7 % (11.5-14.5); WBC 5.4 10x3/uL (4.8-10.8)
[2020-06-02 05:53] LABS: ALBUMIN 3.5 g/dL (3.4-5.0); BILIRUBIN - TOTAL 1.13 mg/dL (0.2-1.3); CALCIUM 8.8 mg/dL (8.5-10.1); CREATININE - SERUM 12.5 mg/dL (0.6-1.3)
--- NOTE | 2020-06-02 06:05 | NUR ---
PTS IV INFILTRATED. REMOVED IV CATHETER, CATHETER INTACT. PT REFUSES NEW IV ACCESS DUE TO AM DISCHARGE.
[2020-06-02 07:00] VITALS: BP 132/80
[2020-06-02] MEDS ORDERED: ELIQUIS5 MG PO (09:01)
--- NOTE | 2020-06-02 09:01 | MORECARE ---
CASE MANAGEMENT DISCHARGE SUMMARY PATIENT: TJ HERNANDEZ UNIT: [id number] ADM DATE: 05/31/20 AGE: 64 : 55 SEX: M ROOM/BED: D.2113 AUTHOR: JULIAN MORROW PHYSICIAN: REFERRING PHYSICIAN: BOAZ CUELLAR MD DATE OF SERVICE: 06/02/20 Discharge Plan Patient Name: TJ HERNANDEZ Facility: [facility]:[place] : 1955 Planned Disposition: Home Anticipated Discharge Date: 06/02/20 Discharge Date: Expected LOS: 2 Initial Reviewer: [email or web address] Initial Review Date: 06/02/2020 Generated: 06/02/20 10:01 am Patient Name: TJ HERNANDEZ Page [id number] at 0901 All edits/amendments must be made on the electronic document DICTATION DATE: 06/02/20900 AEROSPACE CONTROL AND WARNING SYSTEMS: SACHA 06/02/20900 RPT#: [id number] DC DATE: STATUS: ADM IN [facility] [address] [place] [address] END OF REPORT
--- NOTE | 2020-06-02 09:09 | MORECARE ---
CASE MANAGEMENT DISCHARGE SUMMARY PATIENT: TJ HERNANDEZ UNIT: [id number] ADM DATE: 05/31/20 AGE: 64 : 55 SEX: M ROOM/BED: D.2113 AUTHOR: JULIAN MORROW PHYSICIAN: REFERRING PHYSICIAN: BOAZ CUELLAR MD DATE OF SERVICE: 06/02/20 Discharge Plan Patient Name: TJ HERNANDEZ [facility] : 1955 Planned Disposition: Home Anticipated Discharge Date: 06/02/20 Discharge Date: Expected LOS: 2 Initial Reviewer: [email or web address] Initial Review Date: 06/02/2020 Generated: 06/02/20 10:09 am DCPIA - Discharge Planning Initial Assessment Updated by [email or web address]: Helen Rosenberg on 06/02/20 9:04 am * PCP Dr Garcia * Pharmacy [address] in [place] * ADLs Partial Dependent * Partial ADLs (Assistance needed) Ambulation * Equipment Cane Other Oxygen * Other Equipment Portable oxygen * List name and contact numbers for known caregivers / representatives who currently or will assist patient after discharge: Antonio Lan DTR - [address] [facility] [phone] * Community resources currently utilized [place] Services * Please name any agencies selected above. [facility] in [place] * Additional services required to return to the preadmission environment? No * Can the patient safely return to the preadmission environment? Yes * Has this patient been hospitalized within the prior 30 days at any hospital? Yes Last DP export: 06/02/20 8:01 a Patient Name: TJ HERNANDEZ Page 37400 at 0909 All edits/amendments must be made on the electronic document DICTATION DATE: 06/02/20908 OCEANOLOGIST: SACHA 06/02/20908 RPT#: [id number] DC DATE: STATUS: ADM IN [facility] [address] [place] [address] END OF REPORT
--- NOTE | 2020-06-02 09:12 | NUR ---
PT WILL BE ABLE TO DIALYZE IN [facility] TODAY SO WILL DISCHARGE. SCRIPT FOR ELITYLOR CALLED INTO [facility]. 5MG PO BID PER DR HICKS. FAMILY BRINGING OXYGEN. TELEMETRY REMOVED.
--- NOTE | 2020-06-02 09:16 | MORECARE ---
CASE MANAGEMENT DISCHARGE SUMMARY PATIENT: TJ HERNANDEZ UNIT: [id number] ADM DATE: 05/31/20 AGE: 64 : 55 SEX: M ROOM/BED: D.2113 AUTHOR: ODALYS,DOC PHYSICIAN: REFERRING PHYSICIAN: BOAZ CUELLAR MD DATE OF SERVICE: 06/02/20 Discharge Plan Patient Name: TJ HERNANDEZ Facility: [facility]:[place] : 1955 Planned Disposition: Home Anticipated Discharge Date: 06/02/20 Discharge Date: Expected LOS: 2 Initial Reviewer: [email or web address] Initial Review Date: 06/02/2020 Generated: 06/02/20 10:15 am Comments DCP- Discharge Planning Updated by [email or web address]: Helen Rosenberg on 06/02/20 8:[address] Patient Name: TJ HERNANDEZ Admission Status: ER Accout number: [id number] Admission Date: 05-31-2020 : 1955 Admission Diagnosis:OTHER SPECIFIED ABNORMAL FINDINGS OF BLOOD CHEMISTRY Attending: GARRISON Current LOS: 2 Anticipated DC Date: 06-02-2020 Planned Disposition: Home Primary Insurance: MEDICARE A & B Discharge Planning Comments: Received discharge orders. I spoke with patient's daughter about discharge planning, patient does not speak [place] citizen language according to nurse. Patient's daughter states patient is independent with his care. States he dialyzes in [place] at [facility] dialysis. States her brother and mother are on the way to pick him up for dialysis. I spoke with Salima Marques. Salima states to have everything ready for patient when picked up so he does not miss his dialysis chair time. I spoke with Dwain, patient's primary nurse, and he has everything ready for discharge. He is calling in his Rx for Eliquis to his pharmacy. Patient uses "Patient rental needs" in [place] for his oxygen and portable oxygen. She states they no longer live at the address on his face sheet, but she is unsure of their current address. Home today. Grants Officer: Helen Rosenberg DCPIA - Discharge Planning Initial Assessment Updated by [email or web address]: Helen Rosenberg on 06/02/20 9:04 am * PCP Dr Garcia * Pharmacy [facility] [address] in [place] * ADLs Partial Dependent * Partial ADLs (Assistance needed) Ambulation * Equipment Cane Other Oxygen * Other Equipment Portable oxygen * List name and contact numbers for known caregivers / representatives who currently or will assist patient after discharge: Antonio Montenegro - DTR - [address] [address] [phone] * Community resources currently utilized [facility] * Please name any agencies selected above. [facility] in [place] * Additional services required to return to the preadmission environment? No * Can the patient safely return to the preadmission environment? Yes * Has this patient been hospitalized within the prior 30 days at any hospital? Yes Last DP export: 06/02/20 8:09 a Patient Name: TJ HERNANDEZ Page [id number] at 0916 All edits/amendments must be made on the electronic document DICTATION DATE: 06/02/20915 DRYWALL HANGER FRAMER: SACHA 06/02/20915 RPT#: [id number] DC DATE: STATUS: ADM IN [facility] [address] [place] [address] END OF REPORT
--- NOTE | 2020-06-03 12:43 | MORECARE ---
CASE MANAGEMENT DISCHARGE SUMMARY PATIENT: TJ HERNANDEZ UNIT: [id number] ADM DATE: 05/31/20 AGE: 64 : 55 SEX: M ROOM/BED: D.2113 AUTHOR: ODALYS,DOC PHYSICIAN: REFERRING PHYSICIAN: BOAZ CUELLAR MD DATE OF SERVICE: 06/03/20 Discharge Plan Patient Name: TJ HERNANDEZ Facility: [facility]:[place] : 1955 Planned Disposition: Home Anticipated Discharge Date: 06/02/20 Discharge Date: 06/02/2020 Expected LOS: 2 Initial Reviewer: [email or web address] Initial Review Date: 06/02/2020 Generated: 06/03/20 1:42 pm Comments DCP- Discharge Planning Updated by [email or web address]: Helen Rosenberg on 06/02/20 8:[address] Patient Name: TJ HERNANDEZ Admission Status: ER Accout number: [id number] Admission Date: 05-31-2020 : 1955 Admission Diagnosis:OTHER SPECIFIED ABNORMAL FINDINGS OF BLOOD CHEMISTRY Attending: GARRISON Current LOS: 2 Anticipated DC Date: 06-02-2020 Planned Disposition: Home Primary Insurance: MEDICARE A & B Discharge Planning Comments: Received discharge orders. I spoke with patient's daughter about discharge planning, patient does not speak uzbek language according to nurse. Patient's daughter states patient is independent with his care. States he dialyzes in [place] at [facility] dialysis. States her brother and mother are on the way to pick him up for dialysis. I spoke with Salima Marques. Salima states to have everything ready for patient when picked up so he does not miss his dialysis chair time. I spoke with Dwain, patient's primary nurse, and he has everything ready for discharge. He is calling in his Rx for Eliquis to his pharmacy. Patient uses "[facility]" in [place] for his oxygen and portable oxygen. She states they no longer live at the address on his face sheet, but she is unsure of their current address. Home today. Vehicle Operator: Helen Rosenberg DCPIA - Discharge Planning Initial Assessment Updated by [email or web address]: Helen Rosenberg on 06/02/20 9:04 am * PCP Dr Garcia * Pharmacy [facility] [address] in [place] * ADLs Partial Dependent * Partial ADLs (Assistance needed) Ambulation * Equipment Cane Other Oxygen * Other Equipment Portable oxygen * List name and contact numbers for known caregivers / representatives who currently or will assist patient after discharge: Antonio Montenegro - DTR - [phone] [facility] [phone] * Community resources [facility] utilized [facility] * Please name any agencies selected above. [facility] in [place] * Additional services required to return to the preadmission environment? No * Can the patient safely return to the preadmission environment? Yes * Has this patient been hospitalized within the prior 30 days at any hospital? Yes Last DP export: 06/02/20 8:16 a Patient Name: TJ HERNANDEZ Page [id number] at 1243 All edits/amendments must be made on the electronic document DICTATION DATE: 06/03/20 1243 PIN MACHINE TENDER: SACHA 06/03/20 1243 RPT#: [id number] DC DATE:06/02/20 STATUS: DIS IN [facility] [address] [place] [address] END OF REPORT
== END 2020-06-02 10:19 | disposition home or self-care (01) | DRG 280 ==
LOC: D.ER 22:50 → D.M2 05-31 00:46
PROVIDERS: Family Medicine; Internal Medicine; Internal Medicine Interventional Cardiology; ADMIT Family Medicine; ATTEND Family Medicine
PROC: B2151ZZ Fluoroscopy of Left Heart using Low Osmolar Contrast (ICD-10-PCS; 2020-06-01)
PROC: 4A023N7 Measurement of Cardiac Sampling and Pressure, Left Heart, Percutaneous Approach (ICD-10-PCS; 2020-06-01)
PROC: B2111ZZ Fluoroscopy of Multiple Coronary Arteries using Low Osmolar Contrast (ICD-10-PCS; principal; 2020-06-01 09:53)
PROC: 5A1D70Z Performance of Urinary Filtration, Intermittent, Less than 6 Hours Per Day (ICD-10-PCS; 2020-06-02)
DX: I21.4 Non-ST elevation (NSTEMI) myocardial infarction (principal); I50.23 Acute on chronic systolic (congestive) heart failure; N18.6 End stage renal disease; I13.2 Hypertensive heart and chronic kidney disease with heart failure and with stage 5 chronic kidney disease, or end stage renal disease; I42.9 Cardiomyopathy, unspecified; I48.91 Unspecified atrial fibrillation; Z99.2 Dependence on renal dialysis; I25.10 Atherosclerotic heart disease of native coronary artery without angina pectoris; K21.9 Gastro-esophageal reflux disease without esophagitis; E78.5 Hyperlipidemia, unspecified; I95.9 Hypotension, unspecified; I27.20 Pulmonary hypertension, unspecified